=== PATIENT | female | born 1990 | race American Indian/Alaskan Native ===

== ENCOUNTER 2018-11-25 09:33 | Emergency (ER) | payer MEDICAID, OTHER ==
[2018-11-25] MEDS ORDERED: FLEXERIL PO ONE (10:18)
[2018-11-25] MEDS ORDERED: TORADOL IM ONE (10:18)
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
[2018-11-25] MEDS ORDERED: VALIUM PO ONE (10:21)
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
[2018-11-25] MEDS ORDERED: CATAPRES PO ONE (11:37)
[2018-11-25 12:15] VITALS: BP 150/98
== END 2018-11-25 12:49 | disposition home or self-care (01) ==
LOC: ED 09:33
DX: S16.1XXA Strain of muscle, fascia and tendon at neck level, initial encounter (principal); I10 Essential (primary) hypertension; Z76.0 Encounter for issue of repeat prescription; Y04.0XXA Assault by unarmed brawl or fight, initial encounter; Y93.89 Activity, other specified; Y92.89 Other specified places as the place of occurrence of the external cause; Y99.8 Other external cause status; E11.9 Type 2 diabetes mellitus without complications; Z90.49 Acquired absence of other specified parts of digestive tract; F17.200 Nicotine dependence, unspecified, uncomplicated; F12.10 Cannabis abuse, uncomplicated
CPT/HCPCS: 72040; 96372; 99283; J1885